=== PATIENT | female | born 1945 | race Caucasian/White ===

== ENCOUNTER 2018-07-13 22:13 | Emergency (ER) | payer OTHER ==
[~2018-07-13] VITALS: Ht 175.3 cm; Wt 70.3 kg
[~2018-07-13 22:13] MED LIST: APAP500; NORCO 5-325 TA1 EACH PO; ZYRTEC10 M2
[2018-07-13 23:58] LABS: BASOPHILS 0.5 % (0.0-2.0); HEMOGLOBIN 12.8 gm/dL (12.0-15.0); LYMPHOCYTES 41.1 % (24.0-44.0); MCH 29.9 pg (26.0-34.0); MCHC 33.7 g/dL (28.0-37.0); MCV 88.7 fL (80.0-100.0); MONOCYTES 6.6 % (1.0-8.0); PLATELET COUNT 181 thou/uL (150-400); POLYS 47.8 % (36.0-66.0); RBC 4.28 mil/uL (4.20-5.00); RDW 13.1 % (10.5-14.5); WBC 6.2 thou/uL (4.0-11.0)
[2018-07-14 00:07] LABS: ANION GAP 7 mmol/L (7-16); BUN 18 mg/dL (7-18); CALCIUM 10.1 mg/dL (8.5-10.1); CHLORIDE 102 mmol/L (98-107); CO2 30 mmol/L (21-32); CREATININE 0.7 mg/dL (0.6-1.0); GLUCOSE 108 mg/dL (74-106); POTASSIUM 3.7 mmol/L (3.5-5.1); SODIUM 139 mmol/L (136-145)
[2018-07-14 00:17] LABS: TROPONIN-I <0.06 ng/mL (<0.06)
[2018-07-14] MEDS ORDERED: ANTIVERT25 MG PO (00:52)
[2018-07-14 01:35] VITALS: BP 168/68
--- NOTE | 2018-07-14 08:34 | EKG ---
[place] [address] [employer] [place] [address] ELECTROCARDIOGRAM REPORT Name: JAMIE MASCORRO Room #: DEP HERRICK CAMPUSSheridan#: [id number] ������������������ Admission: 07/13/18 ������������������ Attend Phys: Discharge: 07/14/18 ������������������ Date of : 45 Report #: [id number] ����������������������������������������������������������������� [id number] THIS REPORT FOR: //name// [facility] ED Test Date: 2018-07-13 Test Time: 22:47:24 Pat Name: JAMIE MASCORRO Department: Room: Gender: F Portrait Artist: CARMEN : 1945 Requested By: Arben Perez Order Number: [id number] MD: David Dumont Measurements Intervals [place] Rate: 43 P: 68 [place]: 185 QRS: 56 QRSD: 118 T: 54 QT: 469 QTc: 397 Interpretive Statements Sinus bradycardia Incomplete right bundle branch block Baseline wander in lead(s) V6 No previous ECG available for comparison Electronically Signed On 07-14-2018 8:34:28 [employer] by David Dumont [email or web address] ��������������������������������������������� <ELECTRONICALLY SIGNED> ���������������������������������������� By: David Dumont MD, [facility] ��������������������������������������������� 07/14/18 [id number] David Dumont MD, FACC /EPI
== END 2018-07-14 01:37 | disposition home or self-care (01) ==
LOC: ER 22:13
PROVIDERS: Emergency Medicine
DX: J32.8 Other chronic sinusitis (principal); B97.89 Other viral agents as the cause of diseases classified elsewhere; R42 Dizziness and giddiness; Z90.710 Acquired absence of both cervix and uterus; Z88.1 Allergy status to other antibiotic agents